=== PATIENT | female | born 1950 | race African-American/Black ===

== ENCOUNTER 2017-01-03 11:17 | Observation (INO) | payer BC, OTHER ==
[~2017-01-03] VITALS: Ht 157.5 cm; Wt 72.1 kg
--- NOTE | ~2017-01-03 | EKG ---
[place] [address] [place] [employer] [place] [address] ELECTROCARDIOGRAM REPORT Name: DENISSE THAPA Room #: 440-P [facility].#: [id number] Admission: 01/03/17 Attend Phys: Parminder Early Discharge: 01/04/17 Date of : 46 Report #: [id number] THIS REPORT FOR: //name// [facility] ED Test Date: 2017-01-03 Test Time: 11:24:01 Pat Name: DENISSE THAPA Department: Room: 440 Gender: F [employer]ment[employer] Operator: Fabiana ZURITA : 1950 Requested By: Korey Pyle Order Number: [id number] MD: Markos Nasciemnto Measurements Intervals [place] Rate: 57 P: 5 CA: 152 QRS: -16 QRSD: 95 T: -3 QT: 430 QTc: 419 Interpretive Statements Sinus rhythm Left ventricular hypertrophy Borderline T abnormalities, inferior leads No previous ECG available for comparison Electronically Signed On 01-05-2017 11:28:06 CDT by Markos Nascimento [email or web address] <ELECTRONICALLY SIGNED> By: Markos Nascimento MD, [facility] 01/05/17 [id number] Markos Nascimento MD, [facility] /EPI
[~2017-01-03 11:17] MED LIST: BACTROBAN CREAM30 G1 TOP; LEVAQUIN 500 M500 M2 PO; NORVASC 5 MG TAB5 MG PO; VITAMIN D3400 UNIT PO
[2017-01-03 11:20] VITALS: BP 185/93
[2017-01-03 11:52] LABS: ABSOLUTE NEUTROPHILS 3.9 thou/uL (1.4-8.2); BASOPHILS 0.9 % (0.0-2.0); HEMATOCRIT 41.1 % (37.0-47.0); HEMOGLOBIN 13.7 gm/dL (12.0-15.0); LYMPHOCYTES 46.7 % (24.0-44.0); MCH 27.5 pg (26.0-34.0); MCHC 33.3 g/dL (28.0-37.0); MCV 82.6 fL (80.0-100.0); MONOCYTES 4.7 % (1.0-8.0); POLYS 46.7 % (36.0-66.0); RBC 4.98 mil/uL (4.20-5.00); RDW 15.9 % (10.5-14.5); WBC 8.3 thou/uL (4.0-11.0)
[2017-01-03 11:53] LABS: MANUAL DIFF NO
[2017-01-03 12:08] LABS: PLATELET COUNT 131 thou/uL (150-400); PROTIME 10.5 Seconds (9.3-11.4)
[2017-01-03 12:27] LABS: ALBUMIN 3.7 g/dL (3.4-5.0); ALKALINE PHOSPHATASE 101 U/L (46-116); ANION GAP 10 mmol/L (7-16); BUN 20 mg/dL (7-18); CALCIUM 9.3 mg/dL (8.5-10.1); CHLORIDE 105 mmol/L (98-107); CK-MB MASS 1.4 ng/mL (<0.5-3.6); CO2 28 mmol/L (21-32); GLUCOSE 96 mg/dL (74-106); NT-PRO BRAIN NAT PEPTIDE 52 pg/mL (<300); POTASSIUM 3.5 mmol/L (3.5-5.1); SGOT 32 U/L (15-37); SGPT 34 U/L (30-65); SODIUM 143 mmol/L (136-145); TOTAL BILIRUBIN 0.6 mg/dL (<0.1-1.0); TOTAL PROTEIN 7.5 g/dL (6.4-8.2); TROPONIN-I < 0.04 ng/mL (<0.04-0.07)
[2017-01-03 12:32] LABS: MAGNESIUM 1.6 mg/dL (1.8-2.4)
[2017-01-03 13:12] LABS: CHOLESTEROL 169 mg/dL (<200); HDL CHOLESTEROL 41 mg/dL (>40); LDL CHOLESTEROL 93 mg/dL (<100); TC:HDL 4.1 Ratio (Not establshd); TRIGLYCERIDE 178 mg/dL (<150); VLDL 36 mg/dL (<40)
[2017-01-03 13:28] VITALS: BP 172/93
[2017-01-03 13:46] VITALS: BP 133/48
[2017-01-03 16:01] VITALS: BP 140/74
[2017-01-03 19:59] VITALS: BP 121/52
[2017-01-04 00:07] VITALS: BP 112/64
[2017-01-04 04:38] VITALS: BP 130/69
[2017-01-04 08:00] VITALS: BP 121/65
[2017-01-04] MEDS ORDERED: ASPIR 8181 MG PO (10:30)
[2017-01-04] MEDS ORDERED: BACTROBAN CREAM30 G1 TOP (10:34)
[2017-01-04 11:23] VITALS: BP 121/65
== END 2017-01-04 12:14 | disposition home or self-care (01) ==
LOC: ER 11:17 → 4S 12:46 → EROBS 12:46 → 4S 13:18
PROVIDERS: Emergency Medicine; Hospitalist
DX: R07.89 Other chest pain (principal); J32.9 Chronic sinusitis, unspecified; E87.6 Hypokalemia; I10 Essential (primary) hypertension; I49.1 Atrial premature depolarization

== ENCOUNTER 2017-11-28 15:02 | Emergency (ER) | payer BC, OTHER ==
[~2017-11-28] VITALS: Ht 157.5 cm; Wt 72.1 kg
[~2017-11-28 15:02] MED LIST changes: -KEFLEX500 M1 PO; -NORCO 5-325 TA1 EACH PO
[2017-11-28 15:36] LABS: HEMATOCRIT 40.7 % (37.0-47.0); HEMOGLOBIN 13.6 gm/dL (12.0-15.0); MCH 27.4 pg (26.0-34.0); MCHC 33.4 g/dL (28.0-37.0); MCV 82.1 fL (80.0-100.0); PLATELET COUNT 132 thou/uL (150-400); RBC 4.96 mil/uL (4.20-5.00); RDW 15.5 % (10.5-14.5); WBC 8.8 thou/uL (4.0-11.0)
[2017-11-28 15:46] LABS: CALCIUM 9.7 mg/dL (8.5-10.1); CREATININE 0.8 mg/dL (0.6-1.0); POTASSIUM 3.4 mmol/L (3.5-5.1)
[2017-11-28 16:01] LABS: ABSOLUTE NEUTROPHILS 5.4 thou/uL (1.4-8.2)
[2017-11-28 16:03] LABS: SCHISTOCYTES OCCASIONAL
[2017-11-28 16:04] LABS: LARGE PLATELETS OCCASIONAL
[2017-11-28] MEDS ORDERED: NORCO 5-325 TA1 EACH PO (16:09)
[2017-11-28 16:24] LABS: URINE BILIRUBIN NEGATIVE (Negative); URINE BLOOD TRACE (Negative); URINE CLARITY CLEAR; URINE COLOR YELLOW; URINE GLUCOSE-RANDOM* NEGATIVE (Negative); URINE KETONES 1+ (Negative); URINE LEUKOCYTES 2+ (Negative); URINE NITRITE NEGATIVE (Negative); URINE PROTEIN (DIPSTICK) NEGATIVE (Negative); URINE SPECIFIC GRAVITY <= 1.005 (1.005-1.035); URINE UROBILINOGEN 0.2 E.U./dl (0.2-1.0)
[2017-11-28 16:30] LABS: SQUAMOUS 0-3 Few /LPF (0-3); URINE WBC 6-15 Few /HPF (0-5)
[2017-11-28 16:31] LABS: BACTERIA 1-9 Few /HPF (None Seen); CASTS None Seen /LPF (None Seen); CRYSTALS None Seen /LPF (None Seen); URINE RBC 0-2 Rare /HPF (0-2)
[2017-11-28] MEDS ORDERED: KEFLEX500 M1 PO (17:17)
[2017-11-28 18:37] VITALS: BP 143/58
== END 2017-11-28 18:40 | disposition home or self-care (01) ==
LOC: ER 15:02
PROVIDERS: Emergency Medicine
DX: S30.861A Insect bite (nonvenomous) of abdominal wall, initial encounter (principal); S40.262A Insect bite (nonvenomous) of left shoulder, initial encounter; N39.0 Urinary tract infection, site not specified; N20.1 Calculus of ureter; I10 Essential (primary) hypertension; Z88.1 Allergy status to other antibiotic agents; Z88.6 Allergy status to analgesic agent; W57.XXXA Bitten or stung by nonvenomous insect and other nonvenomous arthropods, initial encounter; Y93.89 Activity, other specified; Y92.89 Other specified places as the place of occurrence of the external cause; Y99.8 Other external cause status

== ENCOUNTER → 2017-11-28 | Outpatient (CLI) | payer BC, OTHER ==
[~2017-11-28] MED LIST changes: +ASPIR 8181 MG PO; +KEFLEX500 M1 PO; +NORCO 5-325 TA1 EACH PO
== END ==
LOC: RAD 11-25 00:51
DX: Z12.31 Encounter for screening mammogram for malignant neoplasm of breast (principal)

== ENCOUNTER → 2018-12-04 | Outpatient (CLI) | payer BC, OTHER ==
[~2018-12-04] MED LIST changes: +KEFLEX500 M1 PO; +NORCO 5-325 TA1 EACH PO
== END ==
LOC: RAD 01:24
DX: Z12.31 Encounter for screening mammogram for malignant neoplasm of breast (principal)

== ENCOUNTER → 2019-12-17 | Outpatient (CLI) | payer BC, OTHER | LOC: RAD 08:34 | DX: Z12.31 Encounter for screening mammogram for malignant neoplasm of breast (principal) ==

== ENCOUNTER → 2021-01-08 | Outpatient (CLI) | payer OTHER | LOC: BC 09:07 | PROVIDERS: ATTEND Internal Medicine | DX: Z12.31 Encounter for screening mammogram for malignant neoplasm of breast (principal) ==